=== PATIENT | male | born 1935 | race Caucasian/White ===

== ENCOUNTER 2023-04-20 09:00 | Inpatient (IN) | payer MEDICARE ==
[2023-04-20 10:11] LABS: #Basophils 0.1 10x3/uL (0.0-0.2); #Eosinphils 0.1 10x3/uL (0.0-0.5); #Monocytes 1.3 10x3/uL (0.0-1.1); #Neutrophils 9.9 10x3/uL (1.5-8.4); %Basophils 0.5 % (0.0-2.0); %Eosinophils 0.5 % (0.0-6.0); %Lymphocytes 9.5 % (18.0-47.0); %Monocytes 10.2 % (0.0-10.0); %Neutrophils 78.8 % (40.0-75.0); Hematocrit 45.9 % (38.8-50.0); Hemoglobin 15.6 g/dL (13.5-17.5); Mean Corpuscular Hemoglobin 30.1 pg (27.0-33.0); Mean Corpuscular Volume 88.6 fl (81.2-95.1); Mean Platelet Volume 12.4 fl (7.4-10.4); Platelet Count 226 10x3/uL (150-450); RBC Distribution Width 17.7 % (11.5-14.5); Red Blood Cell (RBC) Count 5.18 10x6/uL (4.32-5.72); White Blood Cell (WBC) Count 12.5 10x3/uL (3.5-10.5)
[2023-04-20 10:20] LABS: Bilirubin Neg (Negative); Blood, Urine 25 (Negative); Clarity Clear (Clear); Glucose, Urine (Dipstick) Normal (Negative); Ketone, Urine Negative (Negative); Leukocyte Negative (Negative); Nitrite Negative (Negative); Protein, Urine (Dipstick) Negative (Neg-Trace); Specific Gravity, Urine 1.015 (1.005-1.030); Urobilinogen Normal mg/dL (Less than 2)
[2023-04-20 10:29] LABS: ALT (SGPT) 16 U/L (8-55); AST (SGOT) 43 U/L (5-34); Alkaline Phosphatase 118 U/L (40-110); Anion Gap 23 mmol/L (10-20); BUN (Urea Nitrogen) 97 mg/dL (8.4-25.7); Bacteria/HPF Rare-Few HPF (None Seen); Bilirubin, Total 1.1 mg/dL (0.2-1.2); CAUTI Indications for Culture Dysuria,urgency,freq; Calc. Creatinine Clearance 0 mL/min (70-130); Calcium 10.4 mg/dL (7.8-10.44); Carbon Dioxide 26 mmol/L (23-31); Chloride 88 mmol/L (98-107); Estimated GFR 21; Globulin 3.3 g/dL (2.4-3.5); Glucose 161 mg/dL (83-110); Protein, Total 7.3 g/dL (5.8-8.1); Sodium 133 mmol/L (136-145); WBC/HPF 0-3 HPF (0-3)
[2023-04-20 10:30] LABS: Urine Culture Reflex No No
[2023-04-20] MEDS ORDERED: Aspirin Chewable 81 MG TAB ONE (10:47)
[2023-04-20] MEDS ORDERED: Glucagon 1 MG/ML KIT IM PRN (13:40)
[2023-04-20] MEDS ORDERED: Dextrose 50% Abboject 50 ML SYRINGE SLOW IVP PRN (13:40)
[2023-04-20] MEDS ORDERED: Ondansetron ODT 4 MG TAB PO PRN (13:40)
[2023-04-20] MEDS ORDERED: Dextrose 5% in Water 1,000 ML IV PRN (13:40)
[2023-04-20] MEDS ORDERED: HumaLOG 300 UNITS/3 ML VIAL SC PRN ×2 (13:40)
[2023-04-20] MEDS ORDERED: Ondansetron PF 4 MG/2 ML Vial IVP PRN (13:40)
[2023-04-20 13:57] LABS: Troponin I 0.675 ng/mL (< 0.028)
[2023-04-20] MEDS: Sodium Chloride 0.9% 1,000 ML IV SCH (15:41)
[2023-04-20 17:22] LABS: Troponin I 0.701 ng/mL (< 0.028)
[2023-04-20 20:47] LABS: CKMB 3.7 ng/mL (0-6.6)
[2023-04-20] MEDS ORDERED: Apixaban 2.5 MG TAB PO SCH (21:00)
[2023-04-20] MEDS: Amitriptyline HCl 10 MG TAB PO SCH (21:55)
[2023-04-20] MEDS: Flecainide 50 MG TAB PO SCH (21:55)
[2023-04-21 06:13] LABS: ALT (SGPT) 11 U/L (8-55); AST (SGOT) 37 U/L (5-34); Albumin 3.3 g/dL (3.4-4.8); Alkaline Phosphatase 104 U/L (40-110); Anion Gap 21 mmol/L (10-20); BUN (Urea Nitrogen) 87 mg/dL (8.4-25.7); Calc. Creatinine Clearance 24 mL/min (70-130); Calcium 9.7 mg/dL (7.6-10.4); Carbon Dioxide 22 mmol/L (23-31); Chloride 94 mmol/L (98-107); Estimated GFR 26; Globulin 3.1 g/dL (2.4-3.5); Glucose 133 mg/dL (83-110); Potassium 3.6 mmol/L (3.5-5.1); Protein, Total 6.4 g/dL (5.8-8.1); Sodium 133 mmol/L (136-145)
[2023-04-21 06:16] LABS: Hematocrit 41.9 % (38.8-50.0); Hemoglobin 14.2 g/dL (13.5-17.5); Mean Corpuscular Hemoglobin 30.3 pg (27.0-33.0); Mean Corpuscular Volume 89.5 fl (81.2-95.1); Red Blood Cell (RBC) Count 4.68 10x6/uL (4.32-5.72); White Blood Cell (WBC) Count 11.1 10x3/uL (3.5-10.5)
[2023-04-21 06:17] LABS: %Basophils 0.6 % (0.0-2.0); %Eosinophils 2.3 % (0.0-6.0); %Lymphocytes 11.6 % (18.0-47.0); %Monocytes 11.6 % (0.0-10.0); %Neutrophils 73.5 % (40.0-75.0); Mean Corpuscular HGB CONC 33.9 g/dL (32.0-36.0); Mean Platelet Volume 12.7 fl (7.4-10.4); Platelet Count 187 10x3/uL (130-400); RBC Distribution Width 17.7 % (11.5-14.5)
[2023-04-21 06:18] LABS: #Basophils 0.7 10x3/uL (0.0-0.2); #Eosinphils 0.3 10x3/uL (0.0-0.5); #Monocytes 1.3 10x3/uL (0.0-1.1); #Neutrophils 8.1 10x3/uL (1.5-8.4)
[2023-04-21] MEDS: Sodium Chloride 0.9% 1,000 ML IV SCH ×2 (06:42→16:45)
[2023-04-21] MEDS: Levothyroxine Sodium 25 MCG TAB PO SCH (06:44)
[2023-04-21] MEDS: Flecainide 50 MG TAB PO SCH ×2 (09:07→21:23)
[2023-04-21] MEDS: Aspirin 81 mg Enteric Coated Tablet PO SCH (09:07)
[2023-04-21] MEDS ORDERED: Potassium Chloride 20 MEQ TAB PO SCH (13:15)
[2023-04-21] MEDS: Carvedilol 3.125 MG TAB PO SCH (17:33)
[2023-04-21] MEDS: Atorvastatin Calcium 40 MG TAB PO SCH (21:23)
[2023-04-21] MEDS: Amitriptyline HCl 10 MG TAB PO SCH (21:23)
[2023-04-22] MEDS: Levothyroxine Sodium 25 MCG TAB PO SCH (06:07)
[2023-04-22] MEDS: Sodium Chloride 0.9% 1,000 ML IV SCH ×2 (06:10→15:57)
[2023-04-22] MEDS: Aspirin 81 mg Enteric Coated Tablet PO SCH (08:30)
[2023-04-22] MEDS: Flecainide 50 MG TAB PO SCH ×2 (08:31→21:41)
[2023-04-22] MEDS: Carvedilol 3.125 MG TAB PO SCH ×2 (08:31→18:03)
[2023-04-22 11:35] LABS: Anion Gap 16 mmol/L (10-20); BUN (Urea Nitrogen) 73 mg/dL (8.4-25.7); Calc. Creatinine Clearance 30 mL/min (70-130); Calcium 9.1 mg/dL (7.8-10.44); Carbon Dioxide 22 mmol/L (23-31); Chloride 99 mmol/L (98-107); Estimated GFR 35; Glucose 152 mg/dL (83-110); Potassium 4.3 mmol/L (3.5-5.1); Sodium 133 mmol/L (136-145)
[2023-04-22] MEDS: Atorvastatin Calcium 40 MG TAB PO SCH (21:41)
[2023-04-22] MEDS: Amitriptyline HCl 10 MG TAB PO SCH (21:41)
[2023-04-23 04:28] LABS: #Basophils 0.1 10x3/uL (0.0-0.2); #Eosinphils 0.3 10x3/uL (0.0-0.5); #Monocytes 1.2 10x3/uL (0.0-1.1); %Basophils 0.6 % (0.0-2.0); %Eosinophils 2.1 % (0.0-6.0); %Lymphocytes 7.1 % (18.0-47.0); %Monocytes 8.4 % (0.0-10.0); %Neutrophils 81.3 % (40.0-75.0); Hematocrit 40.6 % (38.8-50.0); Hemoglobin 13.4 g/dL (13.5-17.5); Mean Corpuscular Hemoglobin 30.1 pg (27.0-33.0); Mean Corpuscular Volume 91.2 fl (81.2-95.1); Mean Platelet Volume 11.9 fl (7.4-10.4); Platelet Count 183 10x3/uL (150-450); RBC Distribution Width 18.2 % (11.5-14.5); Red Blood Cell (RBC) Count 4.45 10x6/uL (4.32-5.72); White Blood Cell (WBC) Count 14.7 10x3/uL (3.5-10.5)
[2023-04-23 04:40] LABS: Anion Gap 15 mmol/L (10-20); BUN (Urea Nitrogen) 56 mg/dL (8.4-25.7); Calc. Creatinine Clearance 29 mL/min (70-130); Calcium 9.5 mg/dL (7.8-10.44); Carbon Dioxide 23 mmol/L (23-31); Chloride 102 mmol/L (98-107); Estimated GFR 34; Glucose 134 mg/dL (83-110); Magnesium 1.9 mg/dL (1.6-2.6); Potassium 4.2 mmol/L (3.5-5.1); Sodium 136 mmol/L (136-145)
[2023-04-23] MEDS: Levothyroxine Sodium 25 MCG TAB PO SCH (06:54)
[2023-04-23] MEDS: Sodium Chloride 0.9% 1,000 ML IV SCH ×2 (06:54→17:02)
[2023-04-23] MEDS: Flecainide 50 MG TAB PO SCH ×2 (08:12→20:22)
[2023-04-23] MEDS: Aspirin 81 mg Enteric Coated Tablet PO SCH (08:12)
[2023-04-23] MEDS: Carvedilol 3.125 MG TAB PO SCH ×2 (08:12→16:59)
[2023-04-23] MEDS: Acetaminophen 325 MG TAB PO PRN ×2 (16:59→23:12)
[2023-04-23 18:00] LABS: Bilirubin Neg (Negative); Blood, Urine 50 (Negative); Clarity Clear (Clear); Glucose, Urine (Dipstick) 50 mg/dL (Negative); Ketone, Urine Negative (Negative); Leukocyte Negative (Negative); Nitrite Negative (Negative); Protein, Urine (Dipstick) Negative (Neg-Trace); Specific Gravity, Urine 1.015 (1.005-1.030); Urobilinogen Normal mg/dL (Less than 2)
[2023-04-23 18:22] LABS: CAUTI Indications for Culture Dysuria,urgency,freq; RBC/HPF 0-3 HPF (0-3); Squamous Epithelial 0-3 HPF (0-3); WBC/HPF None Seen HPF (0-3)
[2023-04-23 18:23] LABS: Bacteria/HPF Rare-Few HPF (None Seen); Urine Culture Reflex No No
[2023-04-23] MEDS: Apixaban 2.5 MG TAB PO SCH (20:21)
[2023-04-23] MEDS: Amitriptyline HCl 10 MG TAB PO SCH (20:21)
[2023-04-23] MEDS: Senokot S 8.6-50 MG TAB PO SCH (20:22)
[2023-04-23] MEDS: Atorvastatin Calcium 40 MG TAB PO SCH (20:22)
[2023-04-24 04:55] LABS: #Basophils 0.1 10x3/uL (0.0-0.2); #Eosinphils 0.4 10x3/uL (0.0-0.5); #Monocytes 1.1 10x3/uL (0.0-1.1); #Neutrophils 10.4 10x3/uL (1.5-8.4); %Basophils 0.7 % (0.0-2.0); %Eosinophils 3.1 % (0.0-6.0); %Lymphocytes 7.2 % (18.0-47.0); %Monocytes 8.6 % (0.0-10.0); %Neutrophils 79.9 % (40.0-75.0); Hematocrit 37.8 % (38.8-50.0); Hemoglobin 12.5 g/dL (13.5-17.5); Mean Corpuscular HGB CONC 33.1 g/dL (32.0-36.0); Mean Corpuscular Hemoglobin 30.4 pg (27.0-33.0); Mean Platelet Volume 12.9 fl (7.4-10.4); Platelet Count 185 10x3/uL (150-450); RBC Distribution Width 18.1 % (11.5-14.5); Red Blood Cell (RBC) Count 4.11 10x6/uL (4.32-5.72)
[2023-04-24 05:06] LABS: Anion Gap 14 mmol/L (10-20); BUN (Urea Nitrogen) 41 mg/dL (8.4-25.7); Calc. Creatinine Clearance 51 mL/min (70-130); Calcium 9.4 mg/dL (7.8-10.44); Carbon Dioxide 22 mmol/L (23-31); Chloride 104 mmol/L (98-107); Estimated GFR 53; Glucose 115 mg/dL (83-110); Potassium 3.8 mmol/L (3.5-5.1); Sodium 136 mmol/L (136-145)
[2023-04-24] MEDS: Levothyroxine Sodium 25 MCG TAB PO SCH (05:30)
[2023-04-24] MEDS: Apixaban 2.5 MG TAB PO SCH (09:31)
[2023-04-24] MEDS: Flecainide 50 MG TAB PO SCH ×2 (09:31→21:59)
[2023-04-24] MEDS: Aspirin 81 mg Enteric Coated Tablet PO SCH (09:32)
[2023-04-24] MEDS: Carvedilol 3.125 MG TAB PO SCH ×2 (09:32→17:03)
[2023-04-24] MEDS: Senokot S 8.6-50 MG TAB PO SCH ×2 (09:35→22:00)
[2023-04-24] MEDS: Polyethylene Glycol 3350 17 GM Packet PO SCH (09:35)
[2023-04-24] MEDS: Dextrose 5 % And 0.9 % NaCl 1,000 ML IV SCH (14:09)
[2023-04-24] MEDS: Cefepime 1 GM in Sodium Chloride 0.9% 100 ML IVPB SCH (17:02)
[2023-04-24] MEDS: Acetaminophen 325 MG TAB PO PRN (17:03)
[2023-04-24] MEDS: Atorvastatin Calcium 40 MG TAB PO SCH (21:59)
[2023-04-25] MEDS: Dextrose 5 % And 0.9 % NaCl 1,000 ML IV SCH ×2 (03:29→14:20)
[2023-04-25] MEDS: Cefepime 1 GM in Sodium Chloride 0.9% 100 ML IVPB SCH ×2 (04:29→16:39)
[2023-04-25] MEDS: Levothyroxine Sodium 25 MCG TAB PO SCH (05:29)
[2023-04-25 10:33] LABS: #Basophils 0.1 10x3/uL (0.0-0.2); #Eosinphils 0.3 10x3/uL (0.0-0.5); #Monocytes 1.2 10x3/uL (0.0-1.1); #Neutrophils 11.3 10x3/uL (1.5-8.4); %Basophils 0.6 % (0.0-2.0); %Eosinophils 1.8 % (0.0-6.0); %Lymphocytes 5.6 % (18.0-47.0); %Monocytes 8.7 % (0.0-10.0); %Neutrophils 82.9 % (40.0-75.0); Hematocrit 36.9 % (38.8-50.0); Hemoglobin 12.1 g/dL (13.5-17.5); Mean Corpuscular HGB CONC 32.8 g/dL (32.0-36.0); Mean Corpuscular Hemoglobin 30.6 pg (27.0-33.0); Mean Corpuscular Volume 93.4 fl (81.2-95.1); Mean Platelet Volume 12.8 fl (7.4-10.4); Platelet Count 188 10x3/uL (150-450); RBC Distribution Width 18.4 % (11.5-14.5); Red Blood Cell (RBC) Count 3.95 10x6/uL (4.32-5.72); White Blood Cell (WBC) Count 13.7 10x3/uL (3.5-10.5)
[2023-04-25 10:47] LABS: INR-International Normal Ratio 1.1; PTT 28.7 sec (22.0-33.0); Prothrombin Time 11.4 sec (9.5-12.1)
[2023-04-25 10:57] LABS: ALT (SGPT) 14 U/L (8-55); AST (SGOT) 25 U/L (5-34); Albumin 2.8 g/dL (3.4-4.8); Alkaline Phosphatase 88 U/L (40-110); Anion Gap 10 mmol/L (10-20); BUN (Urea Nitrogen) 28 mg/dL (8.4-25.7); Bilirubin, Total 0.6 mg/dL (0.2-1.2); Calc. Creatinine Clearance 59 mL/min (70-130); Calcium 9.5 mg/dL (7.8-10.44); Carbon Dioxide 25 mmol/L (23-31); Chloride 106 mmol/L (98-107); Estimated GFR 58; Globulin 2.5 g/dL (2.4-3.5); Glucose 131 mg/dL (83-110); Potassium 3.7 mmol/L (3.5-5.1); Protein, Total 5.3 g/dL (5.8-8.1); Sodium 137 mmol/L (136-145)
[2023-04-25] MEDS: Polyethylene Glycol 3350 17 GM Packet PO SCH (11:26)
[2023-04-25] MEDS: Senokot S 8.6-50 MG TAB PO SCH ×2 (11:26→21:13)
[2023-04-25] MEDS: Lidocaine 4% Patch TD SCH (11:29)
[2023-04-25] MEDS: Carvedilol 3.125 MG TAB PO SCH ×2 (11:30→16:54)
[2023-04-25] MEDS: Flecainide 50 MG TAB PO SCH ×2 (11:30→21:13)
[2023-04-25] MEDS: Acetaminophen 325 MG TAB PO PRN ×2 (11:30→16:54)
[2023-04-25] MEDS: Aspirin 81 mg Enteric Coated Tablet PO SCH (11:30)
[2023-04-25] MEDS: Apixaban 2.5 MG TAB PO SCH (21:13)
[2023-04-25] MEDS: Atorvastatin Calcium 40 MG TAB PO SCH (21:13)
[2023-04-25] MEDS: Transdermal Patch Removal TOP SCH (21:13)
[2023-04-26] MEDS: Cefepime 1 GM in Sodium Chloride 0.9% 100 ML IVPB SCH ×2 (04:17→16:12)
[2023-04-26] MEDS: Dextrose 5 % And 0.9 % NaCl 1,000 ML IV SCH (05:14)
[2023-04-26] MEDS: Levothyroxine Sodium 25 MCG TAB PO SCH (05:14)
[2023-04-26] MEDS: Carvedilol 3.125 MG TAB PO SCH ×2 (08:24→17:17)
[2023-04-26 08:48] VITALS: BMI 27.8
[2023-04-26] MEDS: Lidocaine 4% Patch TD SCH (09:06)
[2023-04-26] MEDS: Senokot S 8.6-50 MG TAB PO SCH ×2 (09:07→20:52)
[2023-04-26] MEDS: Flecainide 50 MG TAB PO SCH ×2 (09:07→20:52)
[2023-04-26] MEDS: Polyethylene Glycol 3350 17 GM Packet PO SCH (09:07)
[2023-04-26] MEDS: Apixaban 2.5 MG TAB PO SCH ×2 (09:07→20:51)
[2023-04-26] MEDS: Aspirin 81 mg Enteric Coated Tablet PO SCH (09:07)
[2023-04-26] MEDS: Atorvastatin Calcium 40 MG TAB PO SCH (20:51)
[2023-04-26] MEDS: Acetaminophen 325 MG TAB PO PRN (21:00)
[2023-04-26] MEDS: Transdermal Patch Removal TOP SCH (21:04)
[2023-04-27] MEDS: Acetaminophen 325 MG TAB PO PRN ×2 (01:38→08:24)
[2023-04-27] MEDS: Dextrose 5 % And 0.9 % NaCl 1,000 ML IV SCH (05:22)
[2023-04-27] MEDS: Cefepime 1 GM in Sodium Chloride 0.9% 100 ML IVPB SCH (05:24)
[2023-04-27] MEDS: Levothyroxine Sodium 25 MCG TAB PO SCH (05:48)
[2023-04-27] MEDS: Senokot S 8.6-50 MG TAB PO SCH (08:23)
[2023-04-27] MEDS: Aspirin 81 mg Enteric Coated Tablet PO SCH (08:23)
[2023-04-27] MEDS: Apixaban 2.5 MG TAB PO SCH (08:23)
[2023-04-27] MEDS: Flecainide 50 MG TAB PO SCH (08:24)
[2023-04-27] MEDS: Carvedilol 3.125 MG TAB PO SCH (08:24)
[2023-04-27] MEDS: Lidocaine 4% Patch TD SCH (08:30)
[2023-04-27] MEDS: Polyethylene Glycol 3350 17 GM Packet PO SCH (08:31)
[2023-04-27 09:27] VITALS: BP 143/70; TEMP 97.6
== END 2023-04-27 09:12 | DRG 56 ==
LOC: CSHERS 09:00 → CSHERHOLD 11:26 → CSHTELE 21:07
PROVIDERS: ADMIT Family Medicine; ATTEND Internal Medicine
DX: G20 Parkinson's disease (principal); I21.A1 Myocardial infarction type 2; N17.9 Acute kidney failure, unspecified; E87.1 Hypo-osmolality and hyponatremia; I50.42 Chronic combined systolic (congestive) and diastolic (congestive) heart failure; I13.0 Hypertensive heart and chronic kidney disease with heart failure and stage 1 through stage 4 chronic kidney disease, or unspecified chronic kidney disease; G89.29 Other chronic pain; I25.10 Atherosclerotic heart disease of native coronary artery without angina pectoris; E03.9 Hypothyroidism, unspecified; Z96.641 Presence of right artificial hip joint; N18.9 Chronic kidney disease, unspecified; I48.0 Paroxysmal atrial fibrillation; E78.5 Hyperlipidemia, unspecified; G47.33 Obstructive sleep apnea (adult) (pediatric); M19.90 Unspecified osteoarthritis, unspecified site; E11.22 Type 2 diabetes mellitus with diabetic chronic kidney disease; Z96.653 Presence of artificial knee joint, bilateral; E78.2 Mixed hyperlipidemia; W19.XXXA Unspecified fall, initial encounter; Z91.81 History of falling; Z95.5 Presence of coronary angioplasty implant and graft; Z95.810 Presence of automatic (implantable) cardiac defibrillator; Z95.1 Presence of aortocoronary bypass graft; Z88.8 Allergy status to other drugs, medicaments and biological substances; Z95.2 Presence of prosthetic heart valve; Z79.899 Other long term (current) drug therapy; Z79.01 Long term (current) use of anticoagulants; Z79.84 Long term (current) use of oral hypoglycemic drugs; I25.2 Old myocardial infarction; Z98.890 Other specified postprocedural states; Z99.81 Dependence on supplemental oxygen; Y92.009 Unspecified place in unspecified non-institutional (private) residence as the place of occurrence of the external cause
CPT/HCPCS: 36415; 36416; 51701; 70450; 71045; 72125; 72170; 80048; 80053; 81001; 82553; 83735; 83880; 84443; 84484; 85025; 85610; 85730; 87040; 93005; 93010; 93306; 94760; 94762; 96360; 97139; J0692; J1071; J1650; J3490; J7042; J7050